=== PATIENT | female | born 1955 | race Caucasian/White ===

== ENCOUNTER → 2017-12-15 10:15 | Outpatient (CLI) | payer OTHER, SELFPAY ==
--- NOTE | 2017-12-15 10:17 | BI_ITS ---
MAMMOGRAPHY - BILATERAL SCREENING REASON FOR EXAM: Female, 62 years old. Routine annual screening examination. PERTINENT HISTORY: Non-contributory. TECHNIQUE: Digital bilateral breast timothy (3D mammographic acquisition) in the CC and MLO projections. 2-D mediolateral oblique (MLO) and craniocaudad (CC) views of both breasts were obtained. CAD: Full Field Digital Mammography with Computer Added Detection was performed. COMPARISON: Comparison is made with prior examination dated December 14, 2016 and December 09, 2015. FINDINGS: Breast Composition: The breasts are almost entirely fatty. There are no dominant masses or suspicious calcifications. Stable appearance of the bilateral axillary lymph nodes. No other significant abnormalities are identified. There has been no significant change since the prior study. BI/SCREENING MAMM (CAD), BILAT IMPRESSION: Stable bilateral screening mammogram. Yearly follow-up mammogram recommended. (A) ASSESSMENT CATEGORY: BIRADS Category 2: Benign. A letter regarding these results will be sent to the patient by the facility within 30 days. Approximately 10% of breast cancers are not detected by mammography. A normal mammogram should not delay biopsy of a clinically suspicious abnormality. [id number] Electronically Signed: Danilo Finley MD at 13:57 EDT Tel [phone], Service support ,
== END ==
PROVIDERS: Family Provider Family Medicine; PCP Family Medicine; Visit Provider Obstetrics & Gynecology
DX: Z12.31 Encounter for screening mammogram for malignant neoplasm of breast (principal)
CPT/HCPCS: 77063; 77067

== ENCOUNTER → 2018-12-18 07:36 | Outpatient (CLI) | payer OTHER, SELFPAY ==
--- NOTE | 2018-12-18 07:39 | BI_ITS ---
MAMMOGRAPHY - BILATERAL SCREENING REASON FOR EXAM: Female, 63 years old. Routine annual screening examination. PERTINENT HISTORY: Non-contributory. TECHNIQUE: Digital bilateral breast asim (3D mammographic acquisition) in the CC and MLO projections. 2-D mediolateral oblique (MLO) and craniocaudad (CC) views of both breasts were obtained. CAD: Full Field Digital Mammography with Computer Added Detection was performed. COMPARISON: Comparison is made with prior examination December 15, 2017 and December 14, 2016. FINDINGS: Breast Composition: The breasts are almost entirely fatty. There are no dominant masses or suspicious calcifications. Stable benign-appearing bilateral axillary lymph nodes. No other significant abnormalities are identified. There has been no significant change since the prior study. BI/SCREEN MAMM (CAD) W/ASIM BILAT IMPRESSION: Stable bilateral screening mammogram. Yearly follow-up mammogram recommended. (A) ASSESSMENT CATEGORY: BIRADS Category 2: Benign. A letter regarding these results will be sent to the patient by the facility within 30 days. Approximately 10% of breast cancers are not detected by mammography. A normal mammogram should not delay biopsy of a clinically suspicious abnormality. [id number] Electronically Signed: Danilo Finley, at 9:46 EDT , Service support ,
== END ==
PROVIDERS: Family Provider Family Medicine; PCP Family Medicine; Referring Provider Obstetrics & Gynecology; Visit Provider Obstetrics & Gynecology
DX: Z12.31 Encounter for screening mammogram for malignant neoplasm of breast (principal)
CPT/HCPCS: 77063; 77067

== ENCOUNTER → 2019-12-20 14:42 | Outpatient (CLI) | payer OTHER, SELFPAY ==
--- NOTE | 2019-12-20 14:45 | BI_ITS ---
MAMMOGRAPHY - BILATERAL SCREENING REASON FOR EXAM: Female, 64 years old. Routine annual screening examination. PERTINENT HISTORY: Non-contributory. TECHNIQUE: Digital bilateral breast asim (3D mammographic acquisition) in the CC and MLO projections. 2-D mediolateral oblique (MLO) and craniocaudad (CC) views of both breasts were obtained. CAD: Full Field Digital Mammography with Computer Added Detection was performed. COMPARISON: Comparison is made with prior study dated 12/18/2018 and 12/15/2017. FINDINGS: Breast Composition: The breasts are almost entirely fatty. There are no dominant masses or suspicious calcifications. Stable benign-appearing bilateral axillary lymph nodes. No other significant abnormalities are identified. There has been no significant change since the prior study. BI/SCREEN MAMM (CAD) W/ASIM BILAT IMPRESSION: Stable bilateral screening mammogram. Yearly follow-up mammogram recommended. (A) ASSESSMENT CATEGORY: BIRADS Category 2: Benign. A letter regarding these results will be sent to the patient by the facility within 30 days. Approximately 10% of breast cancers are not detected by mammography. A normal mammogram should not delay biopsy of a clinically suspicious abnormality. [id number] Electronically Signed: Danilo Finley, at 15:44 EDT , Service support ,
== END ==
PROVIDERS: PCP Family Medicine; Referring Provider Student in an Organized Health Care Education/Training Program; Visit Provider Student in an Organized Health Care Education/Training Program
DX: Z12.31 Encounter for screening mammogram for malignant neoplasm of breast (principal)
CPT/HCPCS: 77063; 77067

== ENCOUNTER 2020-03-03 13:49 | Outpatient (RCR) | payer OTHER, SELFPAY | END 2020-03-03 23:59 | LOC: IMMUN 13:49 | PROVIDERS: PCP Family Medicine; Visit Provider Family Medicine | DX: Z23 Encounter for immunization (principal) | CPT/HCPCS: 0011A; 0012A; 91301 ==

== ENCOUNTER → 2021-02-02 07:20 | Outpatient (CLI) | payer OTHER, SELFPAY ==
--- NOTE | 2021-02-02 07:23 | BI_ITS ---
MAMMOGRAPHY - BILATERAL SCREENING REASON FOR EXAM: Female, 65 years old. Routine annual screening examination. PERTINENT HISTORY: Non-contributory. TECHNIQUE: Digital bilateral breast asim (3D mammographic acquisition) in the CC and MLO projections. 2-D mediolateral oblique (MLO) and craniocaudad (CC) views of both breasts were obtained. CAD: Full Field Digital Mammography with Computer Added Detection was performed. COMPARISON: Comparison is made with prior study dated 12/20/2019 and 12/18/2018. FINDINGS: Breast Composition: The breasts are almost entirely fatty. There are no dominant masses or suspicious calcifications. Stable benign appearing bilateral axillary nodes. No other significant abnormalities are identified. There has been no significant change since the prior study. BI/SCRN MAMM (CAD)W/ASIM BILAT IMPRESSION: Stable bilateral screening mammogram. Yearly follow-up mammogram recommended. (A) ASSESSMENT CATEGORY: BIRADS Category 2: Benign. A letter regarding these results will be sent to the patient by the facility within 30 days. Approximately 10% of breast cancers are not detected by mammography. A normal mammogram should not delay biopsy of a clinically suspicious abnormality. [id number] Electronically Signed: Danilo Finley MD at 9:09 EST , Service support ,
== END ==
PROVIDERS: PCP Family Medicine; Referring Provider Student in an Organized Health Care Education/Training Program; Visit Provider Student in an Organized Health Care Education/Training Program
DX: Z12.31 Encounter for screening mammogram for malignant neoplasm of breast (principal)
CPT/HCPCS: 77063; 77067

== ENCOUNTER 2021-05-22 12:39 | Outpatient (CLI) | payer OTHER, SELFPAY ==
--- NOTE | 2021-05-22 12:52 | CT_ITS ---
STUDY: CT FACIAL BONES WITHOUT CONTRAST REASON FOR EXAM: Female, 65 years old. SINUSITIS RADIATION DOSAGE (If Supplied By Facility): CTDIvol = ( 33.06 ) mGy, DLP = ( 829.72 ) mGycm TECHNIQUE: The patient was scanned in a multi detector CT scanner. Sagittal and coronal images were reconstructed. Individualized dose optimization techniques were used for this CT. COMPARISON: None. FINDINGS: Normal soft tissue structures. Normal orbital carr and orbital contents. Normal nasal bones and anterior nasal spine. Normal facial bones. There is no demonstrated fracture. Minimal mucosal thickening along the anterior inferior aspect of the right maxillary sinus and the posterior inferior aspect of the left maxillary sinus. CT/Sinus/Facial Bone IMPRESSION: Mild degree mucosal thickening of the maxillary sinuses. Electronically Signed: Danilo Finley MD at 13:31 EDT ,
== END 2021-05-22 23:59 | disposition home or self-care (01) ==
LOC: CT 12:48
PROVIDERS: PCP Family Medicine; Referring Provider Otolaryngology; Visit Provider Otolaryngology
DX: J32.8 Other chronic sinusitis (principal)
CPT/HCPCS: 70486

== ENCOUNTER → 2022-05-18 | Outpatient (CLI) | payer OTHER, SELFPAY ==
--- NOTE | 2022-05-18 09:22 | BI_ITS ---
MAMMOGRAPHY - BILATERAL SCREENING REASON FOR EXAM: Female, 66 years old. Routine annual screening examination. PERTINENT HISTORY: Non-contributory. Left lateral breast bruising. TECHNIQUE: Digital bilateral breast asim (3D mammographic acquisition) in the CC and MLO projections. 2-D mediolateral oblique (MLO) and craniocaudad (CC) views of both breasts were obtained. CAD: Full Field Digital Mammography with Computer Added Detection was performed. COMPARISON: Comparison is made with prior examination dated February 02, 2021 and December 20, 2019. FINDINGS: Breast Composition: The breasts are almost entirely fatty. There are no dominant masses or suspicious calcifications. Stable benign-appearing left axillary lymph nodes. No other significant abnormalities are identified. There has been no significant change since the prior study. BI/SCRN MAMM (CAD)W/ASIM BILAT IMPRESSION: Stable bilateral screening mammogram. Yearly follow-up mammogram recommended. (A) ASSESSMENT CATEGORY: BIRADS Category 2: Benign. A letter regarding these results will be sent to the patient by the facility within 30 days. Approximately 10% of breast cancers are not detected by mammography. A normal mammogram should not delay biopsy of a clinically suspicious abnormality. [id number] Electronically Signed: Danilo Finley MD at 11:36 EDT ,
== END | disposition home or self-care (01) ==
LOC: OPBI 09:18
PROVIDERS: PCP Family Medicine; Visit Provider Family Medicine
DX: Z12.31 Encounter for screening mammogram for malignant neoplasm of breast (principal)
CPT/HCPCS: 77063; 77067

== ENCOUNTER 2023-06-21 10:36 | Inpatient (IN) | payer OTHER, SELFPAY ==
[2023-06-21] VITALS (10 sets, daily range): BP systolic 102–124; BP diastolic 53–79; PULSE 61–121; RESP 13–18; TEMP 36–36.7; O2SAT 96–98; BMI 37.0
[2023-06-21] MEDS: Diltiazem 125 MG in Dextrose 5%-Water (100mL Bag) 100 ML 10 MG CONT INF (09:20)
--- NOTE | 2023-06-21 10:26 | EKG12_ITS ---
Test Reason : Blood Pressure : / mmHG Vent. Rate : 113 BPM Atrial Rate : 000 BPM P-R Int : 000 ms QRS Dur : 080 ms QT Int : 288 ms P-R-T Axes : 000 035 007 degrees QTc Int : 395 ms Atrial fibrillation with rapid ventricular response Abnormal ECG When compared with ECG of 03-JUN-2000 11:05, Atrial fibrillation has replaced Sinus rhythm Vent. rate has increased BY 40 BPM Confirmed by TOMMY MOSER, EFE ([id number]), general expeditor ALANA ARCHER ([id number]) on 06/24/2023 9:42:05 AM Referred By: MCKENNA Confirmed By:EFE SANDERS MD
--- NOTE | 2023-06-21 10:47 | ECHOD_ITS ---
Reason For Study: AFIB/FLUTTER Procedure This was a 2D Doppler, Color Flow transthoracic echocardiogram. Patient was scanned in supine position during reflux assessment. Exam performed portable in patient room. Left Ventricle Normal LV size. The estimated ejection fraction is 55 %. No evidence for diastolic dysfunction. No regional wall motion abnormalities noted. Right Ventricle Normal RV size. Normal systolic function. Atria Normal left atrium. Normal right atrium. No doppler evidence for ASD. Mitral Valve There is no mitral valve stenosis. No mitral valve insufficiency. Tricuspid Valve There is no tricuspid stenosis. Trivial tricuspid valve insufficiency. Pulmonary artery systolic pressure is 25 mmHg. Aortic Valve Trisinus/trileaflet aortic valve. There is no aortic stenosis. No aortic valve insufficiency. Pulmonic Valve There is no pulmonic valvular stenosis. No pulmonic valve insufficiency. Great Vessels Normal aortic root. Pericardium/Pleural No pericardial effusion. MMode/2D Measurements & Calculations LVIDd: 3.9 cm IVSd: 1.0 cm LVOT diam: 1.8 cm LVIDs: 2.6 cm LVPWd: 0.98 cm LVOT area: 2.7 cm2 RVDd: 3.4 cm FS: 32.5 % Ao root diam: 3.6 cm LAV(MOD-bp): 48.6 ml LVAd ap4: 19.7 cm2 LAV(MOD-bp) Indexed: 23.4 ml/m2 LVLd ap4: 6.5 cm LAV(MOD-sp2): 41.6 ml EDV(MOD-sp4): 49.3 ml LAV(MOD-sp4): 44.1 ml EDV(sp4-el): 51.1 ml LVAs ap4: 9.5 cm2 LVLs ap4: 5.2 cm ESV(MOD-sp4): 15.7 ml ESV(sp4-el): 14.8 ml EF(MOD-sp4): 68.1 % EF(sp4-el): 71.1 % LVAd ap2: 19.0 cm2 SV(MOD-sp4): 33.5 ml SV(MOD-sp2): 27.6 ml LVLd ap2: 7.1 cm EDV(MOD-sp2): 41.8 ml EDV(sp2-el): 43.2 ml LVAs ap2: 9.5 cm2 LVLs ap2: 5.8 cm ESV(MOD-sp2): 14.2 ml ESV(sp2-el): 13.1 ml EF(MOD-sp2): 66.0 % SV(sp4-el): 36.4 ml LA dimension(2D): 3.5 cm LA A4 area: 18.4 cm2 RA A4 area: 18.0 cm2 TAPSE: 2.4 cm Time Measurements MV dec time: 0.23 sec Doppler Measurements & Calculations MV E max gray: 83.4 cm/sec Lat Peak E' Gray: 10.1 cm/sec Med Peak E' Gray: 8.2 cm/sec MV A max gray: 65.2 cm/sec E/E' lat: 8.2 E/E' med: 10.2 MV E/A: 1.3 Ao V2 max: 124.0 cm/sec LV V1 max: 101.6 cm/sec MV dec slope: 360.2 cm/sec2 Ao max P.1 mmHg LV V1 max P.1 mmHg Ao V2 mean: 81.3 cm/sec LV V1 mean P.0 mmHg Ao mean P.0 mmHg LV V1 mean: 65.9 cm/sec Ao V2 VTI: 22.7 cm LV V1 VTI: 22.2 cm AV (velocity ratio): 0.98 JUDITH(I,D): 2.6 cm2 JUDITH(V,D): 2.2 cm2 SV(LVOT): 59.3 ml PA V2 max: 105.4 cm/sec TR max gray: 235.0 cm/sec PA max PG (full): 0.86 mmHg TR max P.1 mmHg ECHO/Echo Complete Interpretation Summary The estimated ejection fraction is 55 %. No evidence for diastolic dysfunction. Ordering Physician: Kurt Mejía Performed By: Rachelle Oconnor RDCS
--- NOTE | 2023-06-21 11:04 | PCM.HP.STD ---
[facility] - General General Date of Admission: 06/21/23 Date of Service: 06/21/23 Chief Complaint: Palpitation, dizziness for about 1 day before coming to ED HPI Narrative EULALIA MCFARLANE, is a 67 F with no prior diagnosed heart disease came to ED for palpitation, dizziness ongoing for the last 24 hours before going to [facility] ED. She denies chest pain pressure tightness or shortness of breath or diaphoresis. She has history of hypertension and diabetes mellitus and states is controlled on glimepiride 6 mg at supper time. She was also on weight loss medication phentermine lost about 80 pounds but during that time she had felt similar like palpitation but lasted for about half hour therefore did not seek medical help. 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 In ED, patient heart rate was 150s. Twelve-lead EKG shows A-fib 147/min, QTc 374 ms. Patient required 3 doses of diltiazem 20 mg IV bolus and metoprolol 5 mg IV bolus was still her heart rate was high therefore started on Cardizem drip 10 mg/h. Patient has hypomagnesemia 1.6 and magnesium sulfate 2 g IV bolus was replaced. Patient is further directly admitted in PCU for further management Past medical history diabetes mellitus type 2, hypertension controlled therefore lisinopril was taken off after weight loss, obesity grade 2: [facility] History Migraines Home Medications cholecalciferol (vitamin D3) 50 mcg (2,000 unit) capsule (D3-2000) 2,000 unit PO DAILY suppliment 06/21/23 [History Last Taken Unknown] cinnamon bark 500 mg capsule (Cinnamon) 500 mg PO .hs diabetes 06/21/23 [History Last Taken Unknown] elderberry fruit 200 mg capsule 200 mg PO DAILY suppliment 06/21/23 [History Last Taken Unknown] empagliflozin 25 mg tablet (Jardiance) 25 mg PO DAILY diabetes 06/21/23 [History Last Taken Unknown] fluconazole 100 mg tablet (Diflucan) 100 mg PO QWEEK PRN yeast infection 06/21/23 [History Last Taken Unknown] fluticasone propionate 50 mcg/actuation nasal spray,suspension (Flonase Allergy Relief) 2 spray intranasal DAILY PRN allergy symptoms 06/21/23 [History Last Taken Unknown] glimepiride 4 mg tablet 6 mg PO DAILY diabetes 06/21/23 [History Last Taken Unknown] kckfwqyuyamb-jhxzuopx-qcrfw acid 400 mcg-vitamin K 80 mcg capsule (Multi For Her 50 Plus) 1 cap PO DAILY suppliment 06/21/23 [History Last Taken Unknown] vit A-vit W-duig-fqmfeoen lozenges (Zinc (with Vitamins A and C) Lozenges) 1 gustabo PO DAILY suppliment 06/21/23 [History Last Taken Unknown] Allergy/AdvReac Type Severity Reaction Status Date / Time amoxicillin [From Augmentin] Allergy Intermediate Hives Verified 06/21/23 10:05 clavulanic acid Allergy Intermediate Hives Verified 06/21/23 10:05 [From Augmentin] nitrofurantoin Allergy Intermediate Chest Verified 06/21/23 10:05 [From Macrobid] tightness semaglutide [From Ozempic] Allergy Intermediate Hives Verified 06/21/23 10:08 Sulfa (Sulfonamide Allergy Intermediate Shortness Verified 06/21/23 10:05 Antibiotics) of breath ezetimibe [From Zetia] AdvReac Mild Pain in Verified 06/21/23 10:08 joints loracarbef [From Lorabid] AdvReac Mild Pain in Verified 06/21/23 10:05 joints rosuvastatin [From Crestor] AdvReac Mild Pain in Verified 06/21/23 10:08 joints naproxen [From Naprosyn] AdvReac numbness Verified 06/21/23 10:08 in face Family History Mother Atrial fibrillation Uncle Atrial fibrillation no surgical history Social History (Updated 06/21/23 @ 10:25 by Raysa Vo) current occupational status: retired Smoking Status: Never smoker ROS ROS Narrative Constitutional: Reports fatigue and weakness. No fever. HEENT: Reports systems reviewed and no addt'l complaints, except as documented Respiratory/Chest: No acute shortness of breath or respiratory distress or wheezing. No smoking history CVS: Denies chest pain pressure tightness as described in HPI Gastrointestinal: Denies coffee ground emesis, hematemesis or vomiting Genitourinary: Denies burning urination or new urinary tract symptoms Musculoskeletal: Denies acute joint pain or limited range of motion. No acute injury Neurologic: Denies seizure-like symptoms. skin: No ulcer. No rash Endocrinology: Reports systems reviewed and no addt'l complaints, except as documented Hematologic/Lymphatic: Reports systems reviewed and no addt'l complaints, except as documented Rest 14 ROS are negative except as mentioned in HPI Vital Signs Vital Signs Vital Signs: 06/21/23 10:33 06/21/23 09:45 Temperature 98.1 F Temperature Source Oral Pulse Rate 121 H Respiratory Rate 14 Respiratory Effort Normal Non-Labored Respiratory Depth Normal Respiratory Pattern Normal Blood Pressure 108/79 Blood Pressure Mean 88 Blood Pressure Source Monitor Blood Pressure Position Semi-Fowlers Blood Pressure Location Left Arm Pulse Ox 97 Oxygen Delivery Method Room Air Room Air Weight Weight: 226 lb 6.636 oz Body Mass Index (BMI) 37.0 Physical Exam Narrative General: Alert, Oriented x3, Cooperative, BMI 37 point KG per square meter obesity grade 2 HEENT: Atraumatic, PERRLA, EOMI, Normocephalic Oral: No Gingival or Mucosal Lesions/ Ulcerations Neck: Supple, No JVD, Negative Carotid Bruits Chest wall/Lungs: Air entry diminished in bilateral lung bases. No crepitation/rhonchi Cardiovascular: Irregular rhythm, A-fib , 115/min. No murmur gallop rub or rub. Abdomen: Bowel Sounds Present, Soft, Non Tender, Non-Distended : No dysuria. No renal angle tenderness. No suprapubic tenderness. Extremities: No edema, Capillary Refill Less than 3 Seconds Skin: No rashes, No breakdown Musculoskeletal: No Tenderness to Palpation of Joints or Extremities Neurological: Cranial nerves II-XII grossly intact, DTR 2+/4. No acute focal neurological deficit. Psych/Mental Status: Normal Affect, Appropriate. Assessment & Plan Assessment/Plan (1) Atrial fibrillation with RVR: PLAN: Plan This is a 67-year-old female being admitted for dizziness and palpitation and EKG finding consistent with A-fib with RVR 1. A-fib with RVR: Patient is directly admitted in PCU from [facility]. Started on Cardizem drip in ED and continued at 10 mg/h. Metoprolol 25 mg twice daily started. TSH ordered. First troponin is normal. Second troponin ordered. proBNP 460 denies history of coronary artery disease or CHF. 2D echo ordered. Mild leukocytosis probably from A-fib RVR. Does not show signs and symptoms of infection. Chest x-ray 1 view was done. Bibasilar streaky infiltrate, atelectasis. No acute finding. Patient does not have burning pain or/dysuria. 2. Hypomagnesemia: Magnesium replaced. Check magnesium and phosphorus. Labs reviewed sodium potassium within normal limit. 3. Diabetes mellitus type 2: Glucose in BMP 208. Patient states her glucose is controlled on glimepiride 6 mg at supper and continued. Accu-Cheks before meals and at bedtime encouragement of sliding scale. 4. Hypertension: BP 108/79 daily from diltiazem and metoprolol. She states she is no longer on lisinopril, taken off as blood pressure controlled after weight loss. 5. Obesity grade 2: BMI 37.1 kg/m?. She lost about 80 pounds on phentermine but gained back. Weight loss counseling done. Outpatient follow-up with PCP. Living will/advanced directive/end of life care: Patient does have living will or advanced directive. 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 After discussion of benefits/risks procedures involved with full code, DNR CC arrest and DNR CC, the patient opted for full code. Patient does want artificial life support including intubation, tube feed, ventilator and/chest compression, central venous catheter, vasopressor and DC shock if needed Total time spent in [id number]-pi-[id number] encounter in discussion of advanced directive 17 minutes. Charges/Coding Visit Charges Inpatient E&M: 74650 Init Hosp L3 Procedures Hospitalists Procedures: 10132 Advncd Care Plan 30 Min
--- NOTE | 2023-06-21 11:10 | NURSING ---
arrived to pcu with cardizem at 10ml/hr infusing to rt ac at 0920 via squad arrived md present now
[2023-06-21 12:05] LABS: Magnesium 2.4 mg/dL (1.6-2.6); Troponin-I HS 18 pg/mL (3.0-54.0)
[2023-06-21] MEDS: Enoxaparin 100 MG/ML Syringe SC ×2 (12:28→21:40)
[2023-06-21] MEDS: Metoprolol Tartrate 25 MG Tablet PO ×2 (12:28→21:40)
[2023-06-21] MEDS: Empagliflozin 25 MG Tablet PO (12:28)
[2023-06-21 12:49] LABS: EST Glomerular Filtration Rate 89 mL/min (>60); Est Glom Filt Rate - Afr Amer 107 mL/min (>60); Estimated Creatinine Clearance 83.32 ml/min
--- NOTE | 2023-06-21 13:29 | EKG12_ITS ---
Test Reason : Blood Pressure : / mmHG Vent. Rate : 073 BPM Atrial Rate : 073 BPM P-R Int : 150 ms QRS Dur : 074 ms QT Int : 408 ms P-R-T Axes : 039 028 039 degrees QTc Int : 449 ms Normal sinus rhythm Nonspecific T wave abnormality Abnormal ECG When compared with ECG of 21-JUN-2023 09:56, MANUAL COMPARISON REQUIRED, DATA IS UNCONFIRMED Confirmed by TOMMY MOSER, EFE ([id number]), tape editor ALANA ARCHER ([id number]) on 06/24/2023 9:41:54 AM Referred By: MCKENNA Confirmed By:EFE SANDERS MD
[2023-06-21 16:26] LABS: Bacteria 0 SEEN /hpf (None Seen); Mucous, Urine 0 SEEN /hpf (<or=2+); Red Blood Cells-Urine 0 SEEN /hpf (0-5); Squamous Epithelial Cells - UA 0 SEEN /hpf (5-10)
[2023-06-21 16:28] LABS: Color, Urine Yellow (Yellow); Glucose, Dipstick 1000 mg/dl (Normal); Ketone-Dipstick 50 mg/dl (Negative); Leukocyte Esterase-Dipstick Negative /ul (Negative); Nitrite-Dipstick Negative (Negative); Occult Blood-Urine Negative /ul (Negative); Protein-Dipstick Negative (Negative); Urine Bilirubin Dipstick Negative (Negative); Urine Clarity Clear (Clear); Urine Urobilinogen Normal (Normal)
[2023-06-21 16:38] LABS: White Blood Cells 0-5 SEEN /hpf (0-5)
[2023-06-21 17:57] LABS: Bedside Glucose 94 mg/dL (74-106)
[2023-06-22 02:56] VITALS: BP 126/61; PULSE 74; RESP 16; TEMP 36.4; O2SAT 94
[2023-06-22 04:06] VITALS: BMI 37.2
[2023-06-22 07:03] LABS: Absolute Lymphocyte Count 4.29 X10^3/uL (0.83-4.51); Basophil# 0.07 X10^3/uL; Basophil% 0.6 % (0-1); Eosinophil# 1.42 X10^3/uL; Eosinophils% 12.1 % (0-5); Hematocrit 41.7 % (37-47); Hemoglobin 13.1 g/dL (12.0-15.0); Lymphocyte # 4.29 X10^3/ul (0.83-4.51); Lymphocyte % 36.5 % (19-41); Mean Corp Hgb Conc 31.4 g/dL (32-36); Mean Corpuscular Volume 85.8 fL (81-99); Mean Platelet Vol. 9.4 fl (6.2-12.0); Monocyte# 0.91 X10^3/uL; Monocyte% 7.7 % (0-10); NRBC Flagged by Analyzer 0 % (0-5); Neutrophil # 5.04 X10^3/uL (2.7-7.7); Neutrophil % 42.8 % (47-70); Platelet Count 344 K/mm3 (150-450); RBC Distribution Width CV 13.5 % (11.6-14.6); RBC Distribution Width SD 42.1 fl (35.1-43.9); Red Blood Count 4.86 M/mm3 (4.2-5.4); White Blood Count 11.8 K/mm3 (4.4-11.0)
[2023-06-22 07:08] VITALS: O2SAT 97
[2023-06-22 07:37] LABS: Anion Gap 5 (5-15); BUN 22 mg/dL (7-18); BUN/Creat Ratio 30.6 RATIO (10-20); Calcium,Total 9.1 mg/dL (8.5-10.1); Chloride 105 mmol/L (98-107); Cholesterol 160 mg/dL (200); Creatinine, Serum 0.72 mg/dL (0.55-1.02); EST Glomerular Filtration Rate 86 mL/min (>60); Est Glom Filt Rate - Afr Amer 104 mL/min (>60); Estimated Creatinine Clearance 83.45 ml/min; Glucose 103 mg/dL (74-106); High Density Lipoprotein 33 mg/dL; Potassium 3.7 mmol/L (3.5-5.1); Sodium Level 137 mmol/L (136-145); Thyroid Stim Hormone (TSH) 1.59 uIU/mL (0.358-3.74); Triglycerides 197 mg/dL; Very Low Density Lipoprotein 39 mg/dL (5-40)
--- NOTE | 2023-06-22 07:42 | PCM.DC ---
Discharge Instructions Diet Discharge Diet: Low fat / Low cholesterol, 1800 Calorie Control Diet and 2000 mg Sodium Diet Activity Discharge Activity: Return to Normal Activity Weight Bearing Status: Weight bearing as tolerated Dressing / Incision Call your doctor if you observe: Fever of 101 or Higher, Coldness, Increased Pain, Numbness or Tingling, Change in Color, Inability to urinate, Inability to have a bowel movement, Using more than 1 pad per hour, Shortness of breath, Dizziness, Fainting spells, Swelling in the ankles, Chest pain, Prolonged hiccupping, Increased palpitations (irregular heartbeat) and Calf discomfort Follow Up Care When: IN 2 WEEKS Test Results: Test results from this visit will be discussed in further detail at your follow-up appointment, if applicable. Discharge Plan Admission Admit Date/Time: 06/21/23 10:36 Attending Provider: Kurt Mejía Primary Care Provider: Robby Gomes Consulting Providers: Taj Jacobs Discharge Orders/Prescriptions Prescriptions: New metoprolol succinate 25 mg Tablet Extended Release 24 Hr 25 mg PO DAILY 30 Days Qty: 30 3RF Rx Instructions: Hold for heart less than 50 or systolic blood pressure less than 100 mmHg. Eliquis 5 mg Tablet 5 mg PO BID 30 Days Qty: 60 2RF Rx Instructions: Discontinue if platelet count drops less than 50,000 or hemoglobin less than 8 g% Continued Jardiance 25 mg tablet 25 mg PO DAILY glimepiride 4 mg tablet 6 mg PO DAILY fluconazole [Diflucan] 100 mg tablet 100 mg PO QWEEK PRN (Reason: yeast infection) fluticasone propionate [Flonase Allergy Relief] 50 mcg/actuation spray,suspension 2 spray intranasal DAILY PRN (Reason: allergy symptoms) Rx Instructions: administer into each nostril cinnamon bark [Cinnamon] 500 mg capsule 500 mg PO .hs Multi For Her 50 Plus 400-80 mcg capsule 1 cap PO DAILY cholecalciferol (vitamin D3) [D3-2000] 50 mcg (2,000 unit) capsule 2,000 unit PO DAILY Zinc (with A and C) Lozenges Lozenge 1 gustabo PO DAILY elderberry fruit 200 mg capsule 200 mg PO DAILY Referrals / Follow Up: Los Aguilar MD [Med Staff - Active Staff] - Within 1 Month (New onset A-fib.) Robby Gomes MD [Primary Care Provider] - Disposition Disposition (needs filled in before D/C Order can be placed): Home, Self Care
--- NOTE | 2023-06-22 07:43 | DS.PCM_ITS ---
Providers Date of Admission: 06/21/23 Date of Discharge: 06/22/23 Primary Care Physician: Dr. Robby Gomes MD Reason For Visit: AFIB RVR Diagnosis Discharge Diagnosis (1) Atrial fibrillation with RVR: Status: Acute Code(s): I48.91 - Unspecified atrial fibrillation Plan This is a 67-year-old female being admitted for dizziness and palpitation and EKG finding consistent with A-fib with RVR 1. A-fib with RVR: Patient is directly admitted in PCU from [facility]. Started on Cardizem drip in ED and continued at 10 mg/h. Metoprolol 25 mg twice daily started. TSH ordered. First troponin is normal. Second troponin ordered. proBNP 460 denies history of coronary artery disease or CHF. 2D echo ordered. Mild leukocytosis probably from A-fib RVR. Does not show signs and symptoms of infection. Chest x-ray 1 view was done. Bibasilar streaky infiltrate, atelectasis. No acute finding. Patient does not have burning pain or/dysuria. 06/21: Patient is spontaneously converted to sinus rhythm after some time when she was admitted yesterday. Heart rate is controlled. Patient is discharged on metoprolol succinate 25 mg daily and Eliquis 5 mg twice daily. Patient CHADVASC score is 5. Blood pressure 126/61. Heart rate 74/min. 2D echo discussed with the patient. EF 55% no evidence of diastolic dysfunction. No major valvular abnormality 2. Hypomagnesemia: Magnesium replaced. Check magnesium and phosphorus. Labs reviewed sodium potassium within normal limit. 06/21. 06/21 serum magnesium and phosphorus are normal. 3. Diabetes mellitus type 2: Glucose in BMP 208. Patient states her glucose is controlled on glimepiride 6 mg at supper and continued. Accu-Cheks before meals and at bedtime encouragement of sliding scale. 06/21: Blood sugar well-controlled. Glucose 103 BMP. Patient states her home blood sugars are also in between 95-110. Advised A1c in PCP office. 4. History of hypertension: BP 108/79 daily from diltiazem and metoprolol. She states she is no longer on lisinopril, taken off as blood pressure controlled after weight loss. 06/21 blood pressure normal as mentioned above 5. Obesity grade 2: BMI 37.1 kg/m?. She lost about 80 pounds on phentermine but gained back. Weight loss counseling done. Outpatient follow-up with PCP. Living will/advanced directive/end of life care: Patient does have living will or advanced directive. Her is power of immigration attorney for health. After discussion of benefits/risks procedures involved with full code, DNR CC arrest and DNR CC, the patient opted for full code. Patient does want artificial life support including intubation, tube feed, ventilator and/chest compression, central venous catheter, vasopressor and DC shock if needed Clinical Impression(s) from Imaging Studies Echocardiogram 06/21/23 10:47 Interpretation Summary The estimated ejection fraction is 55 %. No evidence for diastolic dysfunction. Medications at Discharge Home Medications cholecalciferol (vitamin D3) 50 mcg (2,000 unit) capsule (D3-2000) 2,000 unit PO DAILY suppliment 06/21/23 cinnamon bark 500 mg capsule (Cinnamon) 500 mg PO .hs diabetes 06/21/23 elderberry fruit 200 mg capsule 200 mg PO DAILY suppliment 06/21/23 empagliflozin 25 mg tablet (Jardiance) 25 mg PO DAILY diabetes 06/21/23 fluconazole 100 mg tablet (Diflucan) 100 mg PO QWEEK PRN yeast infection 06/21/23 fluticasone propionate 50 mcg/actuation nasal spray,suspension (Flonase Allergy Relief) 2 spray intranasal DAILY PRN allergy symptoms 06/21/23 glimepiride 4 mg tablet 6 mg PO DAILY diabetes 06/21/23 edrukhsarmmn-ffdygloa-ovjky acid 400 mcg-vitamin K 80 mcg capsule (Multi For Her 50 Plus) 1 cap PO DAILY suppliment 06/21/23 vit A-vit V-wtbw-pdwveezf lozenges (Zinc (with Vitamins A and C) Lozenges) 1 gustabo PO DAILY suppliment 06/21/23 apixaban 5 mg tablet (Eliquis) 5 mg PO BID 1 month #60 tabs 06/22/23 metoprolol succinate 25 mg tablet,extended release 24 hr 25 mg PO DAILY 30 days #30 tabs 06/22/23 Physical Exam Narrative Seen and examined on the day of discharge General: Alert, Oriented x3, Cooperative, BMI 37.2 kg/m?, obesity grade 2 HEENT: Atraumatic, PERRLA, EOMI, Normocephalic Oral: No Gingival or Mucosal Lesions/ Ulcerations Neck: Supple, No JVD, Negative Carotid Bruits Chest wall/Lungs: Air entry diminished in bilateral lung bases. No crepitatio n/rhonchi Cardiovascular: Converted to sinus rhythm. No murmur gallop rub or rub. Abdomen: Bowel Sounds Present, Soft, Non Tender, Non-Distended : No dysuria. No renal angle tenderness. No suprapubic tenderness. Extremities: No edema, Capillary Refill Less than 3 Seconds Skin: No rashes, No breakdown Musculoskeletal: No Tenderness to Palpation of Joints or Extremities Neurological: Cranial nerves II-XII grossly intact, DTR 2+/4. No acute focal neurological deficit. Psych/Mental Status: Normal Affect, Appropriate. Weight / BMI Weight Weight: 227 lb 1.218 oz Body Mass Index (BMI) 37.2 ABG / Lab / Microbiology Data 06/22/23 06:20 06/22/23 06:20 Laboratory: Laboratory Results - last 24 hr 06/21/23 11:30: Phosphorus 3.0, Magnesium 2.4, Troponin I High Sens 18 06/21/23 11:42: Creatinine 0.70, Estim Creat Clear Calc 83.32, Est GFR (MDRD) Af Amer 107, Est GFR (MDRD) Non-Af 89 06/21/23 16:14: Urine Color Yellow, Urine Clarity Clear, Urine pH 5.0, Ur Specific [place] 1.020, Urine Protein Negative, Urine Glucose (UA) 1000 H, Urine Ketones 50 H, Urine Occult Blood Negative, Urine Nitrite Negative, Urine Bilirubin Negative, Urine Urobilinogen Normal, Ur Leukocyte Esterase Negative, Urine RBC 0 SEEN, Urine WBC 0-5 SEEN, Ur Squamous Epith Cells 0 SEEN, Urine Bacteria 0 SEEN, Urine Mucus 0 SEEN 06/21/23 16:49: POC Glucose 94 06/22/23 06:20: WBC 11.8 H, RBC 4.86, Hgb 13.1, Hct 41.7, MCV 85.8, MCH 27.0, MCHC 31.4 L, RDW Std Deviation 42.1, RDW Coeff of Enrique 13.5, Plt Count 344, MPV 9.4, Immature Gran % (Auto) 0.300, Neut % (Auto) 42.8 L, Lymph % (Auto) 36.5, [place] % (Auto) 7.7, Eos % (Auto) 12.1 H, Baso % (Auto) 0.6, Absolute Neuts (auto) 5.0, Absolute Lymphs (auto) 4.29, Nucleated RBC % 0, Sodium 137, Potassium 3.7, Chloride 105, Carbon Dioxide 27.0, Anion Gap 5, BUN 22 H, Creatinine 0.72, Estim Creat Clear Calc 83.45, Est GFR (MDRD) Af Amer 104, Est GFR (MDRD) Non-Af 86, BUN/Creatinine Ratio 30.6 H, Glucose 103, Calcium 9.1, Triglycerides 197, Cholesterol 160, LDL Cholesterol 88, VLDL Cholesterol 39, HDL Cholesterol 33 L, TSH 1.59 Radiography Diagnostic Testing: Radiology Impression Echocardiogram 06/21/23 10:47 Interpretation Summary The estimated ejection fraction is 55 %. No evidence for diastolic dysfunction. Ordering Physician: Kurt Mejía Performed By: Rachelle Oconnor RDCS D/C Instructions Discharge Diet: Low fat / Low cholesterol, 1800 Calorie Control Diet and 2000 mg Sodium Diet Weight Bearing Status: Weight bearing as tolerated Call your doctor if you observe: Fever of 101 or Higher, Coldness, Increased Pain, Numbness or Tingling, Change in Color, Inability to urinate, Inability to have a bowel movement, Shortness of breath, Dizziness, Fainting spells, Swelling in the ankles, Chest pain, Prolonged hiccupping, Increased palpitations (irregular heartbeat) and Calf discomfort When: IN 2 WEEKS Meaningful Use Info Meaningful Use Meaningful Use Diagnoses (Choose all that apply): None applicable Ischemic Stroke Statin Dosing Therapy Reference: STATIN DOSE THERAPY REFERENCE: * Patients > 75 years receive moderate or high dose statin therapy. * Patients 75 years or YOUNGER should receive HIGH intensity statin dose unless contraindicated. You will be required to document reason for non-treatment if statin daily dose does not meet guidelines. HIGH DOSE STATIN THERAPY DAILY Atorvastatin > than or = to 40 mg Rosuvastatin > than or = to 20 mg Amlodipine + Atorvastatin > than or = to 2.5/40 mg Ezetimibe + Simvastatin 10/80 mg Simvastatin 80mg Discharge Plan Admission Admit Date/Time: 06/21/23 10:36 Attending Provider: Kurt Mejía Primary Care Provider: Robby Gomes Consulting Providers: Taj Jacobs Discharge Orders/Prescriptions Prescriptions: New metoprolol succinate 25 mg Tablet Extended Release 24 Hr 25 mg PO DAILY 30 Days Qty: 30 3RF Rx Instructions: Hold for heart less than 50 or systolic blood pressure less than 100 mmHg. Eliquis 5 mg Tablet 5 mg PO BID 30 Days Qty: 60 2RF Rx Instructions: Discontinue if platelet count drops less than 50,000 or hemoglobin less than 8 g% Continued Jardiance 25 mg tablet 25 mg PO DAILY glimepiride 4 mg tablet 6 mg PO DAILY fluconazole [Diflucan] 100 mg tablet 100 mg PO QWEEK PRN (Reason: yeast infection) fluticasone propionate [Flonase Allergy Relief] 50 mcg/actuation spray,suspension 2 spray intranasal DAILY PRN (Reason: allergy symptoms) Rx Instructions: administer into each nostril cinnamon bark [Cinnamon] 500 mg capsule 500 mg PO .hs Multi For Her 50 Plus 400-80 mcg capsule 1 cap PO DAILY cholecalciferol (vitamin D3) [D3-2000] 50 mcg (2,000 unit) capsule 2,000 unit PO DAILY Zinc (with A and C) Lozenges Lozenge 1 gustabo PO DAILY elderberry fruit 200 mg capsule 200 mg PO DAILY Referrals / Follow Up: Los Aguilar MD [Med Staff - Active Staff] - Within 1 Month (New onset A- fib.) Robby Gomes MD [Primary Care Provider] - Disposition Disposition (needs filled in before D/C Order can be placed): Home, Self Care Charges/Coding Visit Charges Inpatient E&M: 74449 Disch Hosp >30min
[2023-06-22 08:56] VITALS: BP 118/56; PULSE 73; RESP 18; TEMP 36.6; O2SAT 97
[2023-06-22 09:50] VITALS: BP 118/56; PULSE 73
[2023-06-22] MEDS: Metoprolol(XL)Succ 25 MG Tablet PO (09:50)
[2023-06-22] MEDS: Cholecalciferol (VIT D3) 25 MCG TABLET (1,000 UNITS) 50 MCG PO (09:50)
[2023-06-22] MEDS: Empagliflozin 25 MG Tablet PO (09:50)
[2023-06-22] MEDS: APIXABAN 5 MG TABLET PO (09:51)
--- NOTE | 2023-06-22 10:20 | CASEMGMT ---
TRIXIE DAO Face to Face with patient for initial transition planning/care coordination assessment. TRIXIE DAO introduced self and role at [facility]. Patient sitting in chair, alert and oriented. Patient willing to participate in assessment and is able to answer all questions appropriately. Care providers, pharmacy, and demographics verified. PCP: Eliseo Specialists: Bere, ENT; Ben, Dermatology Preferred Pharmacy: [facility] Insurance: [employer] Prescription Benefit: yes Living Will/HPOA: yes, Nicho Wagner LNOK: Living Arrangements: Patient lives with in a split level home with 8 steps and railing between levels. Patient is independent and able to ambulate stairs. Transportation: self, DME/HHC: Patient has raised toilet at home. No previous HHC or SNF. Patient discharging on Eliquis. TRIXIE DAO called [facility] to inquire about copay, $176.69. RN FELIBERTO provided patient with Eliquis Afib packet with savings cards. Patient wishes to discharge home, denies need for home health at this time. Patient states she has no further needs or concerns at this time. CM to follow for discharge planning needs that may arise. Disposition Plan: Patient to discharge home with family support and follow-up plans in place. Pam DUENAS, RN, CM
[2023-06-22 10:43] VITALS: BP 118/56; PULSE 73; RESP 18; TEMP 36.6; O2SAT 97
--- NOTE | 2023-06-22 11:29 | PHA.DC.MC.R ---
Pharmacy [facility] Pharm[facility] Service has performed discharge medication reconciliation and counseling for this patient. Spoke to patient regarding herbal supplements and apixaban. Patient to review with PCP if she should stop cinnamon. 1. APIXABAN 5MG PO BID 2. METOPROLOL SUCCINATE 25MG PO DAILY The patient's discharge medication list was reviewed for discrepancies and discrepancies were resolved. The patient was counseled on the following discharge medications and changes in medications for homegoing were reviewed. The Reason for Use, instructions for use, and potential side effects were reviewed for all new medications. The patient's questions regarding all of their medications were answered. The patient was able to verbally demonstrate an understanding of their discharge medications. Medications at Discharge Home Medications cholecalciferol (vitamin D3) 50 mcg (2,000 unit) capsule (D3-2000) 2,000 unit PO DAILY suppliment 06/21/23 cinnamon bark 500 mg capsule (Cinnamon) 500 mg PO .hs diabetes 06/21/23 elderberry fruit 200 mg capsule 200 mg PO DAILY suppliment 06/21/23 empagliflozin 25 mg tablet (Jardiance) 25 mg PO DAILY diabetes 06/21/23 fluconazole 100 mg tablet (Diflucan) 100 mg PO QWEEK PRN yeast infection 06/21/23 fluticasone propionate 50 mcg/actuation nasal spray,suspension (Flonase Allergy Relief) 2 spray intranasal DAILY PRN allergy symptoms 06/21/23 glimepiride 4 mg tablet 6 mg PO DAILY diabetes 06/21/23 hrelbvlweiwu-qkjgmsts-hmdnu acid 400 mcg-vitamin K 80 mcg capsule (Multi For Her 50 Plus) 1 cap PO DAILY suppliment 06/21/23 vit A-vit Z-cefs-etvwrfjf lozenges (Zinc (with Vitamins A and C) Lozenges) 1 gustabo PO DAILY suppliment 06/21/23 apixaban 5 mg tablet (Eliquis) 5 mg PO BID 1 month #60 tabs 06/22/23 metoprolol succinate 25 mg tablet,extended release 24 hr 25 mg PO DAILY 30 days #30 tabs 06/22/23
== END 2023-06-22 13:41 | disposition home or self-care (01) | DRG 310 ==
PROVIDERS: Admitting Provider Family Medicine; PCP Family Medicine; Visit Provider Internal Medicine
DX: I48.91 Unspecified atrial fibrillation (principal); E11.9 Type 2 diabetes mellitus without complications; I10 Essential (primary) hypertension; E83.42 Hypomagnesemia; E66.9 Obesity, unspecified; Z79.84 Long term (current) use of oral hypoglycemic drugs; Z79.899 Other long term (current) drug therapy; Z68.37 Body mass index [BMI] 37.0-37.9, adult
CPT/HCPCS: 36415; 80048; 80061; 81001; 82565; 82962; 83735; 84100; 84443; 84484; 85025; 87086; 87088; 93005; 93306; 94668

== ENCOUNTER → 2023-08-15 | Outpatient (CLI) | payer OTHER, SELFPAY ==
--- NOTE | 2023-08-15 09:56 | BI_ITS ---
MAMMOGRAPHY - BILATERAL SCREENING REASON FOR EXAM: Female, 67 years old. Routine annual screening examination. PERTINENT HISTORY: Non-contributory. TECHNIQUE: Digital bilateral breast asim (3D mammographic acquisition) in the CC and MLO projections. 2-D mediolateral oblique (MLO) and craniocaudad (CC) views of both breasts were obtained. CAD: Full Field Digital Mammography with Computer Added Detection was performed. COMPARISON: Comparison is made with prior study May 18, 2022 and February 02, 2021. FINDINGS: Breast Composition: The breasts are almost entirely fatty. There are no dominant masses or suspicious calcifications. Stable bilateral fat containing axillary lymph nodes. No other significant abnormalities are identified. There has been no significant change since the prior study. BI/SCRN MAMM (CAD)W/ASIM BILAT IMPRESSION: Stable bilateral screening mammogram. Yearly follow-up mammogram recommended. (A) ASSESSMENT CATEGORY: BIRADS Category 2: Benign. A letter regarding these results will be sent to the patient by the facility within 30 days. Approximately 10% of breast cancers are not detected by mammography. A normal mammogram should not delay biopsy of a clinically suspicious abnormality. [id number] Electronically Signed: Danilo Finley MD at 10:49 EDT ,
== END | disposition home or self-care (01) ==
LOC: OPBI 09:55
PROVIDERS: PCP Family Medicine; Referring Provider Family Medicine; Visit Provider Family Medicine
DX: Z12.31 Encounter for screening mammogram for malignant neoplasm of breast (principal)
CPT/HCPCS: 77063; 77067

== ENCOUNTER 2023-09-14 03:21 | Emergency (ER) | payer OTHER, SELFPAY ==
[2023-09-14 03:22] VITALS: BP 165/89; PULSE 92; RESP 13; TEMP 36.1; O2SAT 95; BMI 38.2
--- NOTE | 2023-09-14 03:41 | EKG12_ITS ---
Test Reason : DYSRHYTHMIA Blood Pressure : / mmHG Vent. Rate : 092 BPM Atrial Rate : 092 BPM P-R Int : 162 ms QRS Dur : 074 ms QT Int : 360 ms P-R-T Axes : 058 032 053 degrees QTc Int : 445 ms Normal sinus rhythm Nonspecific ST abnormality Abnormal ECG Confirmed by TOMMY MOSER, EFE ([id number]), loan expeditor SENTHIL BROWER ([id number]) on 09/14/2023 8:59:43 AM Referred By: BRYCE Confirmed By:EFE SANDERS MD
--- NOTE | 2023-09-14 03:41 | EX.ED.DYSGE1 ---
HPI History of Present Illness Chief Complaint: Palpitations Detail of Chief Complaint: Palpitations and heart racing Informant: patient Narrative Narrative: Patient presents to the emergency department complaint of palpitations and heart racing. Patient states that she felt like she did when she was diagnosed with atrial fibrillation earlier in the year. Patient on Eliquis and takes metoprolol. She states she woke up around 120 and felt like her heart was pounding. She checked her pulse and it was 145. Her watch had rate as high as 168. She denies chest pain or shortness of breath. She did feel a little lightheaded. Patient is was not sure what to do so she came in to be evaluated. [facility] Medical History Essential hypertension Type 2 diabetes mellitus without complication Depression IBS (irritable bowel syndrome) Atrial fibrillation Migraines Home Medications ?Medication ?Instructions ?Recorded ?Last Taken ?Type cholecalciferol (vitamin D3) 50 2,000 unit PO DAILY suppliment 06/21/23 Unknown History mcg (2,000 unit) capsule (D3-2000) cinnamon bark 500 mg capsule 500 mg PO QHS PRN diabetes 06/21/23 Unknown History (Cinnamon) empagliflozin 25 mg tablet 25 mg PO DAILY diabetes 06/21/23 Unknown History (Jardiance) fluconazole 100 mg tablet 100 mg PO QWEEK PRN yeast infection 06/21/23 Unknown History (Diflucan) glimepiride 4 mg tablet 6 mg PO DAILY diabetes 06/21/23 Unknown History diphenhydramine 25 1 tab PO QHS PRN insomnia 07/05/23 Unknown History mg-acetaminophen 500 mg tablet (Tylenol PM Extra Strength) fluticasone propionate 50 2 spray intranasal BID PRN allergy 07/05/23 Unknown History mcg/actuation nasal symptoms spray,suspension (Flonase Allergy Relief) apixaban 5 mg tablet (Eliquis) 5 mg PO BID 1 month #120 tabs 08/10/23 Unknown Rx clobetasol 0.05 % topical cream 1 applic topical BID PRN rash 08/10/23 Unknown History hydrochlorothiazide 12.5 mg tablet 12.5 mg PO QDAY PRN swelling 08/10/23 Unknown History hyoscyamine sulfate 0.125 mg 0.125 mg sublingual DAILY PRN IBS 08/10/23 Unknown History sublingual tablet metoprolol succinate 25 mg 25 mg PO DAILY #90 tabs 08/10/23 Unknown Rx tablet,extended release 24 hr Allergy/AdvReac Type Severity Reaction Status Date / Time amoxicillin (From Augmentin) Allergy Intermediate Hives Verified 09/14/23 03:23 clavulanic acid (From Allergy Intermediate Hives Verified 09/14/23 03:23 Augmentin) nitrofurantoin (From Allergy Intermediate Chest Verified 09/14/23 03:23 Macrobid) tightness semaglutide (From Ozempic) Allergy Intermediate Hives Verified 09/14/23 03:23 Sulfa (Sulfonamide Allergy Intermediate Shortness Verified 09/14/23 03:23 Antibiotics) of breath bupivacaine (From Exparel Allergy Unknown Rash Verified 09/14/23 03:23 (PF)) duloxetine (From Cymbalta) Allergy Unknown headaches Verified 09/14/23 03:23 levofloxacin (From Levaquin) Allergy Unknown numbness Verified 09/14/23 03:23 sulfamethoxazole (From Allergy Unknown tongue Verified 09/14/23 03:23 Septra) swelling trimethoprim (From Septra) Allergy Unknown tongue Verified 09/14/23 03:23 swelling phentermine AdvReac Severe irregular Verified 09/14/23 03:23 HR ezetimibe (From Zetia) AdvReac Mild Pain in Verified 09/14/23 03:23 joints loracarbef (From Lorabid) AdvReac Mild Pain in Verified 09/14/23 03:23 joints rosuvastatin (From Crestor) AdvReac Mild Pain in Verified 09/14/23 03:23 joints naproxen (From Naprosyn) AdvReac numbness Verified 09/14/23 03:23 in face Family History Mother Atrial fibrillation Hypertension Hyperlipidemia Unknown Atrial fibrillation Father Pacemaker Prostate CA Surgical History History of total abdominal hysterectomy and bilateral salpingo-oophorectomy History of umbilical hernia repair History of sinus surgery (~2013) History of spinal surgery (12/16/14) History of (~1982) History of colonoscopy History of appendectomy History of cholecystectomy (04/14/22) Social History current occupational status: retired Smoking Status: Never smoker alcohol intake: never substance use type: does not use caffeine: Yes ROS ROS ED Review of Systems ROS Unobtainable: other Constitutional Constitutional ED: Reports lethargy; Denies chills, fever(s), sweats or weight loss Eyes Eyes: Denies blurry vision, change in vision or diplopia ENT ENT ED: Denies rhinorrhea or sore throat Cardiovascular Cardiovascular: Reports palpitations and racing heartbeat; Denies chest pain or orthopnea Respiratory/Chest Respiratory/Chest: Denies cough, dyspnea, dyspnea on exertion, orthopnea or sputum Gastrointestinal Gastrointestinal: Denies abdominal pain, diarrhea, nausea or vomiting Genitourinary Genitourinary ED: Denies dysuria, hematuria or urinary frequency Musculoskeletal Musculoskeletal: Denies arthralgias, back pain, myalgias or neck pain Integumentary Denies abscess, Abrasions or rash Neurologic Neurologic: Denies headache(s) or weakness Psychiatric Psychiatric: Denies anxiety, depression or suicidal thoughts Endocrine Endocrinology: Denies polydipsia, polyphagia or polyuria Hematologic/Lymphatic Hematologic/Lymphatic: Denies easy bleeding, easy bruising or lymphadenopathy Allergic/Immunologic Allergic/Immunologic ED: Denies mouth swelling, tongue swelling or urticaria EXAM Physical Exam Const Vital Signs: 09/14/23 03:22 Temperature 96.9 F L Temperature Source Oral Pulse Rate 92 Respiratory Rate 13 Blood Pressure 165/89 H Blood Pressure Mean 114 Pulse Ox 95 Positive well nourished and well developed General Appearance ED: well developed and NAD HEENT Reports TM's clear and moist mucous membranes normocephalic and atraumatic; Negative for trauma or tenderness Tympanic Membrane ED: Yes TM's clear Eyes PERRL and EOMs intact bilaterally General Eye ED: Negative for pale conjunctiva or scleral icterus Neck no lymphadenopathy, supple and no JVD General: Negative for tenderness Chest Wall inspection of chest normal and palpation of chest normal Chest: Negative for tenderness Resp normal respiratory effort and clear to auscultation bilaterally Effort and Inspection: Negative for respiratory distress or pain with movement Auscultation: Negative for rhonchi, wheezes or diminished lung sounds Cardio regular rate, regular rhythm, S1 normal heart sound, S2 normal heart sound and no murmurs Peripheral Pulses: pulses 2+ throughout GI normal to inspection, nondistended, normoactive bowel sounds, soft to palpation, non-tender, non-distended and no masses Back/Spine no CVA tenderness and no thoracic nor lumbar tenderness Extremity normal to inspection General Extremety ED: Negative for edema General Extremity: Negative for edema Neuro oriented x3, CN's II-XII intact bilaterally, no sensory deficits noted and gait normal Sensorium / Orientation: awake, alert, oriented to person, oriented to place and oriented to time Motor Exam: strength 5/5 throughout and strength abnormal Psych mental status grossly normal Skin no rashes or lesions noted and no wounds MDM MDM MDM Narrative Medical decision making narrative: Patient presents with episode of tachycardia and palpitations with history of A-fib. On arrival to the emergency department she states that her symptoms have resolved. She had 1 other episode of A-fib in the past and she received Cardizem at [facility] and was given magnesium and she returned back to sinus rhythm. She is anticoagulated with Eliquis and is currently on metoprolol for rate control. Patient normally takes her metoprolol in the morning. She denies chest pain or shortness of breath. IV line established. EKG obtained arrival showed a sinus rhythm with rate of 92 bpm with no acute ST segment changes. CBC with differential was unremarkable. Chemistries unremarkable other than a slightly depressed potassium of 3.4 for which I did give her 40 mEq of potassium chloride p.o. Patient was also given her dose of metoprolol 25 mg p.o. At this point she is asymptomatic and feels well. She is anticoagulated. I do not think any further treatment is indicated. Patient advised to follow-up with her cone runner within next 3 to 5 days. If her A-fib should flareup again she can try an extra dose of metoprolol. If that does not help or if she should have chest pain or shortness of breath and she is to return to the emergency department. Lab Data Attestation: I reviewed the patient's lab results. EKG Initial EKG: Attestation: I personally reviewed and interpreted this EKG as follows: Comments: Sinus rhythm with rate of 92 bpm with no acute ST segment changes Discharge Plan Triage Chief Complaint: Palpitations ED Provider: Efrain Mauro Dx/Rx/DC Orders Clinical Impression: Atrial fibrillation Instructions: ED AFIB Prescriptions: No Action diphenhydramine-acetaminophen [Tylenol PM Extra Strength] 25-500 mg tablet 1 tab PO QHS PRN (Reason: insomnia) clobetasol 0.05 % cream 1 applic topical BID PRN (Reason: rash) hyoscyamine sulfate 0.125 mg tablet, sublingual 0.125 mg sublingual DAILY PRN (Reason: IBS) hydrochlorothiazide 12.5 mg tablet 12.5 mg PO QDAY PRN (Reason: swelling) Eliquis 5 mg tablet 5 mg PO BID 30 Days Qty: 120 2RF Rx Instructions: Discontinue if platelet count drops less than 50,000 or hemoglobin less than 8 g% metoprolol succinate 25 mg tablet extended release 24 hr 25 mg PO DAILY Qty: 90 2RF Rx Instructions: Hold for heart less than 50 or systolic blood pressure less than 100 mmHg. Jardiance 25 mg tablet 25 mg PO DAILY glimepiride 4 mg tablet 6 mg PO DAILY fluconazole [Diflucan] 100 mg tablet 100 mg PO QWEEK PRN (Reason: yeast infection) cinnamon bark [Cinnamon] 500 mg capsule 500 mg PO QHS PRN (Reason: diabetes) cholecalciferol (vitamin D3) [D3-2000] 50 mcg (2,000 unit) capsule 2,000 unit PO DAILY fluticasone propionate [Flonase Allergy Relief] 50 mcg/actuation spray,suspension 2 spray intranasal BID PRN (Reason: allergy symptoms) Rx Instructions: administer into each nostril Primary Care Provider: Robby Gomes Referrals: Robby Gomes MD [Primary Care Provider] - Activity Restrictions/Additional Instructions: Follow-up with Dr. Carmen Fuentes's office regarding any medication changes. Print Language: Mauritian Disposition Disposition: Home, Self Care
[2023-09-14 03:49] LABS: Absolute Lymphocyte Count 3.55 X10^3/uL (0.83-4.51); Absolute Neutrophil Count 8.5 X10^3/uL (2.0-7.7); Basophil% 0.7 % (0-1); Eosinophil# 0.78 X10^3/uL; Eosinophils% 5.5 % (0-5); Hematocrit 47.8 % (37-47); Hemoglobin 15.5 g/dL (12.0-15.0); Lymphocyte # 3.55 X10^3/ul (0.83-4.51); Lymphocyte % 25.1 % (19-41); Mean Corp Hgb Conc 32.4 g/dL (32-36); Mean Corpuscular Hgb 26.1 pg (27.0-32.0); Mean Corpuscular Volume 80.3 fL (81-99); Mean Platelet Vol. 9.5 fl (6.2-12.0); Monocyte# 1.13 X10^3/uL; NRBC Flagged by Analyzer 0 % (0-5); Neutrophil % 60.2 % (47-70); Platelet Count 383 K/mm3 (150-450); RBC Distribution Width CV 13.7 % (11.6-14.6); RBC Distribution Width SD 39.3 fl (35.1-43.9); Red Blood Count 5.95 M/mm3 (4.2-5.4); White Blood Count 14.1 K/mm3 (4.4-11.0)
[2023-09-14] MEDS: Metoprolol(XL)Succ 25 MG Tablet PO (03:57)
[2023-09-14 04:09] LABS: Anion Gap 8 (5-15); BUN 19 mg/dL (7-18); BUN/Creat Ratio 23.8 RATIO (10-20); Calcium,Total 10.1 mg/dL (8.5-10.1); Chloride 104 mmol/L (98-107); EST Glomerular Filtration Rate 77 mL/min (>60); Est Glom Filt Rate - Afr Amer 93 mL/min (>60); Estimated Creatinine Clearance 83.94 ml/min; Glucose 202 mg/dL (74-106); Potassium 3.4 mmol/L (3.5-5.1); Sodium Level 138 mmol/L (136-145); Troponin-I HS 6 pg/mL (3.0-54.0)
[2023-09-14 04:22] VITALS: BP 143/77; PULSE 75; RESP 16; O2SAT 96
[2023-09-14 04:35] VITALS: BP 143/77; PULSE 79; RESP 13; TEMP 36.2; O2SAT 98
[2023-09-14] MEDS: Potassium Chloride Oral Tablet 20 MEQ 40 MEQ PO (04:38)
== END 2023-09-14 04:41 | disposition home or self-care (01) ==
PROVIDERS: Emergency Provider Emergency Medicine; PCP Family Medicine; Visit Provider Emergency Medicine
DX: I48.91 Unspecified atrial fibrillation (principal); E11.9 Type 2 diabetes mellitus without complications; I10 Essential (primary) hypertension; Z79.01 Long term (current) use of anticoagulants; Z79.84 Long term (current) use of oral hypoglycemic drugs; Z79.899 Other long term (current) drug therapy
CPT/HCPCS: 80048; 84484; 85025; 93005; 99284; A4216

== ENCOUNTER → 2024-10-03 | Outpatient (CLI) | payer OTHER, SELFPAY ==
[2024-10-03 11:26] LABS: Hematocrit 43.3 % (37-47); Hemoglobin 13.9 g/dL (12.0-15.0); Immature Granulocytes Count 0.040 X10^3/uL (0.0-0.0); Mean Corp Hgb Conc 32.1 g/dL (32-36); Mean Corpuscular Volume 85.1 fL (81-99); Mean Platelet Vol. 9.3 fl (6.2-12.0); NRBC Flagged by Analyzer 0 % (0-5); Platelet Count 296 K/mm3 (150-450); RBC Distribution Width CV 13.5 % (11.6-14.6); RBC Distribution Width SD 42.5 fl (35.1-43.9); Red Blood Count 5.09 M/mm3 (4.2-5.4); White Blood Count 9.8 K/mm3 (4.4-11.0)
[2024-10-03 12:10] LABS: Cholesterol 197 mg/dL (<=200); Low Density Lipoprotein Calc. 107 mg/dL; Magnesium 2.1 mg/dL (1.5-2.2); Triglycerides 252 mg/dL; Very Low Density Lipoprotein 50 mg/dL (5-40); cholesterol:hdl ratio screen 4.93
[2024-10-03 12:33] LABS: AST(SGOT) 15 U/L (<=31); Alanine Aminotransfer ALT/SGPT 16 U/L (<=34); Albumin, Serum 4.4 g/dL (3.4-4.8); Alkaline Phosphatase 119 U/L (35-104); Anion Gap 13 (5-15); BUN 18 mg/dL (4-19); BUN/Creat Ratio 31.9 RATIO (10-20); Calcium,Total 9.9 mg/dL (7.6-11.0); Carbon Dioxide 24.1 mmol/L (21.0-32.0); Chloride 102 mmol/L (98-108); Globulin 2.8 g/dL (2.2-4.2); Glucose 235 mg/dL (70-99); Potassium 3.9 mmol/L (3.3-5.1)
== END | disposition home or self-care (01) ==
LOC: LAB 10:19
PROVIDERS: PCP Family Medicine; Referring Provider Physician Assistant Medical; Visit Provider Physician Assistant Medical
DX: E11.9 Type 2 diabetes mellitus without complications (principal); I48.0 Paroxysmal atrial fibrillation; I10 Essential (primary) hypertension
CPT/HCPCS: 36415; 80053; 80061; 83036; 83735; 84443; 85025

== ENCOUNTER → 2025-01-21 | Outpatient (CLI) | payer OTHER, SELFPAY ==
--- NOTE | 2025-01-21 07:56 | BI_ITS ---
EXAM: SCRN MAMM (CAD)W/ASIM BILAT DATE: 01/21/2025 CLINICAL HISTORY: F, Age 69 y/o , SCREENING No family history. TECHNIQUE: Procedure Code: [id number] Modality: MG Procedure: SCRN MAMM (CAD)W/ASIM BILAT COMPARISON: Prior exam(s) dated August 15, 2023. FINDINGS: TISSUE DENSITY: The breasts are almost entirely fatty. Bilateral Breast Mammographic Findings: No significant masses, calcifications or other abnormalities are identified. Stable bilateral fat containing axillary lymph nodes. No suspicious masses, areas of developing architectural distortion, or suspicious calcifications. There has been no significant interval change. BI/SCRN MAMM (CAD)W/ASIM BILAT IMPRESSION: Stable bilateral screening mammogram. OVERALL FINAL ASSESSMENT BI-RADS 2: BENIGN RECOMMENDATION: Routine annual follow-up in 1 Year Additional Recommendation none A letter with findings and recommendations will be mailed to the patient. Reading Location: [place] [id number]
== END | disposition home or self-care (01) ==
LOC: OPBI 07:54
PROVIDERS: PCP Family Medicine; Referring Provider Family Medicine; Visit Provider Family Medicine
DX: Z12.31 Encounter for screening mammogram for malignant neoplasm of breast (principal)
CPT/HCPCS: 77063; 77067